=== PATIENT | male | born 1980 | race Caucasian/White ===

== ENCOUNTER 2019-10-05 17:56 | Emergency (ER) | payer SELFPAY ==
[~2019-10-05] VITALS: Ht 175.3 cm; Wt 100.0 kg
[2019-10-05 18:06] VITALS: BP 137/80
[2019-10-05] MEDS ORDERED: AMOX-422 PO (19:23)
== END 2019-10-05 19:31 | disposition home or self-care (01) ==
LOC: ER 17:57
DX: K04.7 Periapical abscess without sinus (principal); K02.9 Dental caries, unspecified; H92.02 Otalgia, left ear
CPT/HCPCS: 99283